=== PATIENT | male | born 1985 | race Caucasian/White ===

== ENCOUNTER 2023-01-01 17:13 | Emergency (ER) | payer OTHER ==
[~2023-01-01] VITALS: Ht 165.1 cm; Wt 61.0 kg
[2023-01-01 17:17] VITALS: BP 118/74
[2023-01-01] MEDS ORDERED: ACETAMINOPHEN 325MG TABLET PO ONE (18:15)
[2023-01-01] MEDS ORDERED: IBUPROFEN 600MG TABLET PO ONE (18:15)
[2023-01-01] MEDS ORDERED: IBUPROFEN 600MG TABLET PO NR (18:30)
== END 2023-01-01 20:38 | disposition home or self-care (01) ==
LOC: ER 17:13
DX: M54.9 Dorsalgia, unspecified (principal); M79.671 Pain in right foot
CPT/HCPCS: 72100; 73600; 99284